=== PATIENT | female | born 1975 | race Caucasian/White ===

== ENCOUNTER 2016-03-20 04:17 | Observation (INO) | payer OTHER ==
[2016-03-20] MEDS ORDERED: NS 1,000 ML IV ONE ×2 (04:27→05:41)
[2016-03-20] MEDS ORDERED: HYDROmorphONE/DILAUDID 1 MG/ML SYR IVP ONE ×3 (04:27→05:41)
[2016-03-20] MEDS ORDERED: ONDANSETRON 4 MG/2 ML VIAL IVP ONE (04:27)
--- NOTE | 2016-03-20 04:27 | EDPHY ---
H & P Stated Complaint: abd pain nausea/vomiting diarrhea since 2 am gallblader removed / HPI/ROS: HPI CHIEF COMPLAINT: Abdominal pain HISTORY OF PRESENT ILLNESS: This patient very pleasant 40-year-old female she just had elective gallbladder removal by Dr. Hardy on Monday or approximately 5 days ago. She has been doing well however she has been taking pain medicine to control her incisional pain and postoperative pain she tells me that she has been constipated for the past 5 days is not had a bowel movement. She tells me that she took multiple doses of Senokot this evening to have a bowel movement she woke up suddenly around 2 o'clock minus excruciating crampy abdominal pain located in her mid abdomen she did have a diarrheal bowel movement and 1 episode of vomiting. She reported nonbilious nonbloody. She does tell me that after Valium she does feel slightly better but has mid abdominal pain. She denies epigastric pain chest pain or shortness of breath denies fever. currently she tells me her pain is 3/10 mid abdomen Past Medical History: Denies significant medical history Past Surgical History: cholecystectomy recently, tubal ligation Social History: Denies use of drugs, she does endorse alcohol daily 2 glasses of wine she did have a glass of wine at 6:00 p.m. this evening. Denies tobacco Family History:noncontributory ROS REVIEW OF SYSTEMS: A comprehensive 10 point review of systems is otherwise negative aside from elements mentioned in the history of present illness. Exam Constitutional triage nursing summary reviewed, vital signs reviewed, awake/ alert. Eyes normal conjunctivae and sclera, EOMI, PERRLA. HENT normal inspection, atraumatic, moist mucus membranes, no epistaxis, neck supple/ no meningismus, no raccoon eyes. Respiratory clear to auscultation bilaterally, normal breath sounds, no respiratory distress, no wheezing. Cardiovascular rate normal, regular rhythm, no murmur, no edema, distal pulses normal. Gastrointestinal soft, mild tenderness palpation periumbilical region and slightly superior to the umbilicus, no epigastric pain, no rebound, no guarding , normal bowel sounds, no distension, no pulsatile mass. Genitourinary no CVA tenderness. Musculoskeletal no midline vertebral tenderness, full range of motion, no calf swelling, no tenderness of extremities, no meningismus, good pulses, neurovascularly intact. Skin pink, warm, & dry, no rash, skin atraumatic. Neurologic awake, alert and oriented x 3, AAOx3, moves all 4 extremities equally, motor intact, sensory intact, CN II-XII intact, normal cerebellar, normal vision, normal speech. Psychiatric normal mood/affect. Heme/Lymph/Immune no lymphadenopathy. Differential diagnosis includes but is not limited to and in no particular order : Constipation, internal hernia, Bowel obstruction, appendicitis, gallbladder disease, diverticulitis, colitis, enteritis, perforated viscus, gastritis, GERD , esophagitis, urinary tract infection, pyelonephritis, kidney stones Medical Decision Making: This patient had an IV established obtain blood work, she will be medicated with Zofran for nausea IV fluid she has declined pain medicine this time. She had a CT scan of her abdomen pelvis given her recent cholecystectomy and abdominal pain however most likely abdominal pain is due to constipation and having a bowel movement this evening. She has been constipated for 5 days took multiple laxatives doses today and had a sudden onset crampy abdominal pain and then a bowel movement. Re-evaluation: CT scan of the abdomen pelvis with IV contrast. The results of the study are shows minimal fluid in the gallbladder fossa, however otherwise no acute inflammatory process seen in the abdomen The study was read by Dr. Corey I viewed the images myself on the PACS system. 0554: Re-examination patient is still having ongoing abdominal pain it is tender in the mid abdomen she is nauseous. She has had multiple rounds of Dilaudid with poor control of her pain. Due to ongoing pain and nausea vomiting I will admitted to the medical surgical unit I did speak with Dr. Mckoy at this time he agrees to admit this patient. 0557: re-examination this time I did reexamine her abdomen she is focally tender epigastric region there is no guarding or peritoneal signs. She is feeling more comfortable now after IV Dilaudid. I have also ordered an EKG time of EKG 6:01 a.m., this is sinus rhythm rate of 55, there is no acute ischemic changes appreciated specifically no ST elevation, ST depression, T- wave abnormalities. This is a normal-appearing EKG. Source: Patient - Personal History LMP (Females 10-55): 1-7 Days Ago Current Tetanus/Diphtheria Vaccine: Yes Current Tetanus Diphtheria and Acellular Pertussis (TDAP): Yes - Medical/Surgical History Hx Asthma: No Hx Chronic Respiratory Disease: No Hx Diabetes: No Hx Cardiac Disease: No Hx Renal Disease: No Hx Cirrhosis: No Hx Alcoholism: No Hx HIV/AIDS: No Hx Splenectomy or Spleen Trauma: No Other PMH: hypothyroid - Social History Smoking Status: Never smoked Constitutional: Initial Vital Signs Temperature (C) 37 C 03/20/16 04:20 Heart Rate 67 03/20/16 04:20 Respiratory Rate 16 03/20/16 04:20 Blood Pressure 115/85 H 03/20/16 04:20 O2 Sat (%) 99 03/20/16 04:20 O2 Delivery Mode Room Air O2 (L/minute) 2 Allergies/Adverse Reactions: No Known Allergies Allergy (Unverified 03/20/16 04:19) Home Medications: Medication Instructions Recorded Cyanocobalamin [Vitamin B12 (*)] 3,000 mcg PO DAILY 03/20/16 Hyoscyamine Sulfate [Levsin, 0.125 mg SL TID PRN 03/20/16 Hyomax-Sl 0.125 mg (*)] Levothyroxine [Synthroid 50 mcg 50 mcg PO DAILY06 03/20/16 (*)] Omeprazole 40 mg PO DAILY@18 03/20/16 Medical Decision Making - Data Points Laboratory Results: Laboratory Results 03/20/16 04:40 03/20/16 04:40 Medications Given: Discontinued Medications Hydromorphone HCl (Dilaudid) 0.5 mg IVP EDNOW ONE Stop: 03/20/16 04:28 Last Admin: 03/20/16 04:57 Dose: 0.5 mg Hydromorphone HCl (Dilaudid) 0.5 mg IVP EDNOW ONE Stop: 03/20/16 05:28 Last Admin: 03/20/16 05:27 Dose: 0.5 mg Hydromorphone HCl (Dilaudid) 1 mg IVP EDNOW ONE Stop: 03/20/16 05:42 Last Admin: 03/20/16 05:55 Dose: 1 mg Sodium Chloride (Ns) 1,000 mls @ 0 mls/hr IV ONCE ONE PRN Reason: Wide Open Stop: 03/20/16 04:28 Last Admin: 03/20/16 04:56 Dose: 1,000 mls Sodium Chloride (Ns) 1,000 mls @ 0 mls/hr IV ONCE ONE PRN Reason: Wide Open Stop: 03/20/16 05:42 Last Admin: 03/20/16 06:23 Dose: 1,000 mls Ondansetron HCl (Zofran) 4 mg IVP EDNOW ONE Stop: 03/20/16 04:28 Last Admin: 03/20/16 04:57 Dose: 4 mg Promethazine HCl (Phenergan Injection) 12.5 mg IVP ONCE ONE Stop: 03/20/16 05:57 Last Admin: 03/20/16 14:49 Dose: Not Given Departure - Departure Disposition: [facility] Acute Clinical Impression: Abdominal pain Qualifiers: Abdominal location: generalized Qualifier Code: (R10.84) Generalized abdominal pain Condition: Fair
[2016-03-20 04:49] LABS: % IMMATURE GRANULYOCYTES 0.5 % (0.0-1.1); ABSOLUTE IMMATURE GRANULOCYTES 0.06 10^3/uL (0.00-0.10); ADD DIFF? NO; ADD MORPH? NO; ADD SCAN? NO; ATYPICAL LYMPHOCYTE FLAG 0 (0-99); FRAGMENT RBC FLAG 0 (0-99); HEMATOCRIT 41.5 % (38.0-47.0); HEMOGLOBIN 14.7 g/dL (12.6-16.3); LEFT SHIFT FLG 0 (0-99); LIPEMIA HEMOLYSIS FLAG 90 (0-99); MEAN CELL HEMOGLOBIN 34.2 pg (27.9-34.1); MEAN CELL HEMOGLOBIN CONCENTR. 35.4 g/dL (32.4-36.7); MEAN CELL VOLUME 96.5 fL (81.5-99.8); MEAN PLATELET VOLUME 9.7 fL (8.7-11.7); PLATELET CLUMPS FLAG 20 (0-99); PLATELET COUNT 246 10^3/uL (150-400); RED CELL DISTRIBUTION WIDTH 11.8 % (11.5-15.2)
[2016-03-20] MEDS ORDERED: IOPAMIDOL (ISOVUE-300) 100 ML BTL IV ONE (05:00)
[2016-03-20 05:04] LABS: ALANINE AMINOTRANSFERASE 55 IU/L (9-52); ALBUMIN 4.4 g/dL (3.5-5.0); ALKALINE PHOSPHATASE 55 IU/L (38-126); ANION GAP 10 mEq/L (8-16); ASPARTATE AMINOTRANSFERASE 33 IU/L (14-46); BILIRUBIN,TOTAL 0.9 mg/dL (0.1-1.4); BILIRUBIN-CONJUGATED 0.6 mg/dL (0.0-0.5); BILIRUBIN-UNCONJUGATED 0.3 mg/dL (0.0-1.1); CALCIUM 9.5 mg/dL (8.5-10.4); CARBON DIOXIDE 27 mEq/l (22-31); CHLORIDE 102 mEq/L (97-110); GLOMERULAR FILTRATION RATE > 60; GLUCOSE 108 mg/dL (70-100); POTASSIUM 4.3 mEq/L (3.5-5.2); SODIUM 139 mEq/L (134-144); TOTAL PROTEIN 7.4 g/dL (6.3-8.2)
[2016-03-20 05:08] LABS: COLOR YELLOW; LEUKOCYTE ESTERASE,URINE NEGATIVE (NEGATIVE); NITRITE,URINE NEGATIVE (NEGATIVE)
[2016-03-20] MEDS ORDERED: HYDROmorphONE/DILAUDID 1 MG/ML SYR ONE (05:12)
[2016-03-20] MEDS ORDERED: PROMETHAZINE HCL 25 MG/ML INJ IVP ONE (05:56)
--- NOTE | 2016-03-20 06:03 | CPEKG ---
Heart Rate: 55 RR Interval: 1091 P-R Interval: 136 QRSD Interval: 92 QT Interval: 476 QTC Interval: 456 P Weems: 15 QRS Weems: 50 T Wave Weems: 28 EKG Severity - NORMAL ECG - EKG Impression: SINUS RHYTHM Electronically Signed By: Luiz Georges 22-Mar-2016 05:16:56
[2016-03-20] MEDS: ONDANSETRON 4 MG/2 ML VIAL IVP PRN ×2 (07:14→18:49)
[2016-03-20] MEDS: HYDROmorphONE/DILAUDID 1 MG/ML SYR IVP PRN ×6 (07:29→18:28)
--- NOTE | 2016-03-20 08:46 | GDS ---
[f rep st] TRANSFER SUMMARY CHIEF COMPLAINT: Abdominal pain. HISTORY OF PRESENT ILLNESS: A 40-year-old female, status post laparoscopic cholecystectomy several d ays ago here at [facility], complains of epigastric pain. Seen in the emergency department, requiring Dilau did. White blood count 12.77, hematocrit was 41. Chemistries were essentially normal with a low manuel irubin, normal lipase. Urinalysis was negative. A CT scan was done showing no specific abnormal findings, miniscule fluid in the gallbladder fossa as would be expected. At the time of my exam this morning, the patient's abdomen is soft, benign, and essentially pain free . She also had quite a bit of vomiting, requiring Zofran both in the ER and on admission. ALLERGIES: None. CURRENT MEDICATIONS: Synthroid, Prilosec. PAST SURGICAL HISTORY: Cholecystectomy, tubal ligation. REVIEW OF SYSTEMS: Denies asthma, heart trouble, diabetes, epilepsy, or rheumatic fever. PHYSICAL EXAM: HEENT: No scleral icterus. Pharynx clear. NECK: Supple without adenopathy. LUNGS : Clear. HEART: Normal S1, S2 without murmur. ABDOMEN: Soft, benign. No masses. EXTREMITIES: Neurologic exam is intact. LABORATORY DATA: CT scan and labs reviewed. ASSESSMENT: Abdominal pain, but it seems to be resolving. Right now the abdomen is very benign. PLAN: Clear liquids, advance as tolerated. If she does not need any more Dilaudid, we will send her home later today. /[id number]/MODL
--- NOTE | 2016-03-20 14:57 | NM ---
Nuclear medicine HIDA scan. March 20, 2016. HISTORY: Evaluate for possible bile leak. Cholecystectomy. TECHNIQUE: Gamma camera images of the right upper quadrant are obtained after intravenous administrat ion of 6.0 mCi technetium Choletec. FINDINGS: There is rapid uptake of radiopharmaceutical by the liver. Excretion into the small bowel i s identified along with opacification of the common bile duct. The vast majority of excreted material extends into the small bowel. However, there is a very small amount of scintigraphic activity just b elow the inferior tip of the right hepatic lobe, suggesting there may be a small amount of bile leaka ge into the subhepatic region. IMPRESSION: 1. The vast majority of excreted scintigraphic material passes into the small bowel, with minimal sub hepatic accumulation of radiopharmaceutical suggesting minimal biliary extravasation.
--- NOTE | 2016-03-20 16:37 | CT ---
CT Scan of the Abdomen and Pelvis (With Contrast) March 20, 2016at 0522 Hours History: Right upper quadrant abdominal pain. Technique: Axial computed tomographic images of the abdomen and pelvis were obtained with the unevent ful intravenous administration of 90 mL Isovue-300 contrast. No oral or rectal contrast which limits the study. Dose reduction techniques were utilized. CT Abdomen Findings Lung bases: Normal. Liver: Normal. Biliary system: Gallbladder is surgically absent. Minimal fluid in the gallbladder fossa, probably po stsurgical. No biliary ductal dilation. Spleen: Normal. Pancreas: Normal. Adrenals: Normal. Kidneys: No obstruction or solid masses. Abdominal aorta: No aneurysm. No bowel obstruction, ascites, or significant retroperitoneal lymphadenopathy. CT Pelvis Findings: Minimal free fluid in the pelvis, probably physiologic. No adnexal masses. No sig nificant adenopathy. No pneumoperitoneum. No evidence of inflammatory thickening of the appendix. Impressions: 1. Prior cholecystectomy with minimal free fluid in the gallbladder fossa region, which is likely pos tsurgical benign. 2. No CT evidence of appendicitis, abscess, or bowel obstruction. Findings and recommendations discussed with emergency department physician, Dr. Nick Hernandez at 0535 hours today. Final report concurs with initial preliminary interpretation.
[2016-03-20] MEDS ORDERED: ACETAMINOPHEN 325 MG TAB PO PRN (17:53)
[2016-03-21] MEDS: ONDANSETRON 4 MG/2 ML VIAL IVP PRN ×3 (01:06→19:54)
[2016-03-21] MEDS ORDERED: LR 1,000 ML IV SCH (09:30)
[2016-03-21] MEDS ORDERED: GLUCAGON,HUMAN RECOMBINANT 1 MG VIAL ONE (10:35)
[2016-03-21] MEDS ORDERED: IOTHALAMATE MEG (CONRAY) 50 ML VIAL IV ONE (10:35)
[2016-03-21] MEDS ORDERED: MIDAZOLAM 2 MG/2 ML VIAL ONE (11:01)
[2016-03-21] MEDS ORDERED: fentaNYL 100 MCG/2 ML INJ ONE ×2 (11:02→11:46)
[2016-03-21] MEDS ORDERED: DEXAMETHASONE 4 MG/ML VIAL ONE (11:02)
[2016-03-21] MEDS ORDERED: ROCURONIUM 50 MG/5 ML VIAL ONE (11:02)
[2016-03-21] MEDS ORDERED: ONDANSETRON 4 MG/2 ML VIAL ONE (11:02)
[2016-03-21] MEDS ORDERED: LIDOCAINE 2% 100 MG/5 ML SYR IVP ONE (11:02)
[2016-03-21] MEDS ORDERED: SUGAMMADEX SODIUM 200 MG/2 ML VIAL IVP ONE (11:02)
[2016-03-21] MEDS ORDERED: PROPOFOL 200 MG/20 ML VIAL ONE (11:02)
[2016-03-21] MEDS ORDERED: levOFLOXACIN 500 MG/DEXTROSE/100 ML BAG IV ONE (11:20)
[2016-03-21] MEDS ORDERED: INDOMETHACIN 50 MG SUPP PR ONE (11:21)
[2016-03-21] MEDS ORDERED: PROMETHAZINE HCL 25 MG/ML INJ ONE (11:48)
--- NOTE | 2016-03-21 12:25 | GPN ---
[f rep st] PROCEDURE NOTE DATE OF PROCEDURE: 03/21/2016 PROCEDURE: Endoscopic retrograde cholangiopancreatography with biliary sphincterotomy, extraction of debris, placement of a stent. INDICATION: Ms. [facility] is a 40-year-old female, who had a recent cholecystectomy and now has evidence of a bile leak. She presents for further evaluation. CONSENT: Risks, benefits, and alternatives of the procedure were discussed in great detail with the patient. Risk of infection, bleeding, perforation, sedation, and pancreatitis were discussed. All questions were answered. Informed consent was obtained. MEDICATIONS: General anesthesia. Please see Anesthesia record for details. Indomethacin 100 mg per rectum. Levaquin 500 mg IV x1. ESTIMATED BLOOD LOSS: Insignificant. ERCP EXAM: The Olympus duodenoscope was introduced into the mouth and advanced to the second portion of the duodenum. The ampulla was brought into view and was normal in appearance. Using a [employer] 0.035 inch wire,a wire was advanced into the common bile duct on the initial attempt. No pancreatic duct manipulation or injection was made. A limited cholangiogram was performed to confirm position. A 1 cm biliary sphincterotomy was then performed and a balloon sweep was then made with a [place] 9-12 mm balloon with removal of debris. A occlusion cholangiogram was performed and no obvious leak noted. A 10-[employer] 7 cm stent was placed into the bile duct due to the abnormal HIDA findings. Excess air was suctioned. The procedure was terminated. IMPRESSION: 1. Endoscopic retrograde cholangiopancreatography with biliary sphincterotomy, removal of debris, and placement of a plastic stent. RECOMMENDATION: 1. N.p.o. till tomorrow. 2. Antibiotics x5 days. 3. Repeat ERCP in 6-8 weeks. /[id number]/MODL MTDD
--- NOTE | 2016-03-21 13:05 | GCON ---
[f rep st] CONSULTATION DATE OF CONSULTATION: 03/21/2016 CONSULTING PHYSICIAN: Adolfo Cordova MD REASON FOR CONSULTATION: Bile leak. HISTORY OF PRESENT ILLNESS: Allegra is a 40-year-old female with an elective cholecystectomy approximately 5 days ago, who presents to [facility] with complaints of abdominal pain, nausea and vomiting. The patient started experiencing an excruciating crampy pain mainly in the upper quadrants of the day prior to admission. She also had 1 episode of diarrheal bowel movements. She does complain of nausea and vomiting, but these symptoms are worsened with any type of oral intake with some relief with Valium. She had a CT scan as well as a HIDA scan which reveals the possibility of a bile leak. I am being asked by Dr. Morgan to evaluate Allegra in consultation regarding her abdominal pain. PAST MEDICAL HISTORY: Hypothyroidism, GERD PAST SURGICAL HISTORY: Cholecystectomy, recent tubal ligation. ALLERGIES: NKDA MEDICATIONS: Synthroid, Prilosec. SOCIAL HISTORY: Positive alcohol. No cigarette use. FAMILY HISTORY: No history of pancreatic or gallbladder cancer. REVIEW OF SYSTEMS: A 12-point comprehensive review of systems was asked. Pertinent positives and negatives as per HPI. PHYSICAL EXAMINATION: VITAL SIGNS: Blood pressure 107/74, pulse 85, respirations 16, temperature 37. GENERAL: Awake, alert, oriented x3. In no distress. HEENT: Anicteric sclerae. Mucous membranes moist. NECK: No JVD. CARDIOVASCULAR: Regular rate and rhythm. Positive S1, S2. No murmurs or gallops appreciated. LUNGS: Clear to auscultation bilaterally. No wheezes, rales or rhonchi. ABDOMEN: Soft, tender in midepigastrium. No guarding. No rebound. Positive bowel sounds. EXTREMITIES: No clubbing, cyanosis, edema. NEUROLOGIC: Cranial nerves II through XII grossly intact. PSYCH: Normal affect. MUSCULOSKELETAL: No joint effusions. LABORATORY DATA: Blood work: WBC 12.77, hemoglobin 14.0, hematocrit 41.5. Total bilirubin 0.9, AST 33, ALT 55, alkaline phosphatase 55, albumin 4.4, lipase 23. HIDA scan: Minimal extravasation. ASSESSMENT AND PLAN: 1. Abdominal pain- midepigastrium, after cholecystectomy. Did have a HIDA scan which did reveal a bile leak. At this time I recommend to proceed with ERCP for further evaluation as well as possible stent placement. The risks, benefits , and alternatives of the procedure were discussed with the patient. The risks of infection, bleeding, perforation, sedation, and pancreatitis were discussed. All questions were answered. Informed consent was obtained. /[id number]/MODL MTDD
--- NOTE | 2016-03-21 13:14 | DX ---
Intraoperative fluoroscopy History: ERCP. Comparison: CT abdomen pelvis March 20, 2016. Findings: 3 intraoperative spot films are provided, showing balloon sweeping of the common bile duct. No filling defects are identified. Fluoro time: 89.3 seconds. Dose: 20.7 mGy. Impression: Intraoperative fluoroscopy as above.
[2016-03-21 13:29] VITALS: RESP 16
--- NOTE | 2016-03-21 14:31 | SOAPPROG ---
SOAP Progress Note Assessment/Plan: Assessment/Plan: HIDA scan with possible cystic duct stump leak Normal lab results ERCP no demonstrable leak Stent placed Patient feels well RRR CTA 3 trocar sites c/d/i Doing well Clears liq Advance diet to reg tomorrow if labs normal Objective: Vital Signs Temp Pulse Resp BP Pulse Ox 37.1 C 55 L 16 123/77 H 92 03/21/16 13:27 03/21/16 13:27 03/21/16 13:27 03/21/16 13:27 03/21/16 13:27 03/20/16 03/21/16 03/22/16 05:59 05:59 05:59 Intake Total 3901 950 Output Total 850 0 Balance 3051 950 ICD10 Worksheet Patient Problems: Problems Problem Status Diagnosed Abdominal pain Acute
[2016-03-21] MEDS ORDERED: DIAZEPAM 10 MG/2 ML SYR IVP PRN (23:15)
[2016-03-21] MEDS ORDERED: HYDROCODONE/APAP 5/325 TAB PO PRN (23:15)
[2016-03-21] MEDS: KETOROLAC 30 MG/1 ML SDV IVP PRN (23:27)
--- NOTE | 2016-03-22 08:19 | SOAPPROG ---
SOAP Progress Note Assessment/Plan: Assessment: Plan: Subjective: vss, af, feeling better with stent. will dc home if tolerating diet. Objective: Vital Signs Temp Pulse Resp BP Pulse Ox 37 C 66 16 110/61 92 03/22/16 04:00 03/22/16 04:00 03/22/16 04:00 03/22/16 04:00 03/22/16 04:00 03/21/16 03/22/16 03/23/16 05:59 05:59 05:59 Intake Total 3901 4150 Output Total 850 300 Balance 3051 3850 ICD10 Worksheet Patient Problems: Problems Problem Status Diagnosed Abdominal pain Acute
[2016-03-22 08:33] VITALS: BP 119/76; PULSE 54; TEMP 98.5; O2SAT 94
[2016-03-22] MEDS: KETOROLAC 30 MG/1 ML SDV IVP PRN (10:46)
--- NOTE | 2016-03-22 11:13 | SOAPPROG ---
[facility] Progress Note Assessment/Plan: Assessment: Post ERCP with stent for small bile leak. Doing well Plan: OK to advance diet as tolerate Levaquin PO for 5 days Remove stent in 6-8 weeks Will sign off 03/22/16 11:10 Subjective: CC abd pain Pain much better today, had BM today no melena or BRB Objective: Vital Signs Temp Pulse Resp BP Pulse Ox 36.9 C 54 L 16 119/76 94 03/22/16 08:00 03/22/16 08:00 03/22/16 08:00 03/22/16 08:00 03/22/16 08:00 03/21/16 03/22/16 03/23/16 05:59 05:59 05:59 Intake Total 3901 4150 Output Total 850 300 Balance 3051 3850 Physical Exam - Physical Exam General Appearance: alert, no apparent distress Respiratory: lungs clear, normal breath sounds Cardiac/Chest: regular rate, rhythm, No diastolic murmur Abdomen: non-tender, soft ICD10 Worksheet Patient Problems: Problems Problem Status Diagnosed Abdominal pain Acute
--- NOTE | 2016-03-22 12:09 | GDS ---
[f rep st] DISCHARGE SUMMARY PRESENT ILLNESS: This patient was admitted several days after an emergent cholecystectomy with incre asing epigastric pain. HIDA scan was done, and she was found to have a small bile leak. She underwe nt an ERCP by Dr. Hussein, feels better, and will be discharged home if she tolerates diet this morning. FINAL DIAGNOSIS: Bile leak post cholecystectomy. DISPOSITION: Home. FOLLOWUP: Dr. Mckoy in a week. Follow up in [address] Hussein for stent removal. /[id number]/MODL
== END 2016-03-22 13:16 | disposition home or self-care (01) ==
LOC: INTOOBSV 05:51 → F3E 06:43
PROVIDERS: ADMIT Surgery; ATTEND Surgery
PROC: 0F798DZ Dilation of Common Bile Duct with Intraluminal Device, Via Natural or Artificial Opening Endoscopic (ICD-10-PCS; principal; 2016-03-20)
PROC: 0FC98ZZ Extirpation of Matter from Common Bile Duct, Via Natural or Artificial Opening Endoscopic (ICD-10-PCS; principal; 2016-03-20)
DX: K91.89 Other postprocedural complications and disorders of digestive system (principal); E03.9 Hypothyroidism, unspecified; K21.9 Gastro-esophageal reflux disease without esophagitis
CPT/HCPCS: 43264; 43274; 74177; 76001; 78226; 93005; 96361; 96374; 96375; 99285; A9537; G0378; C2625; J1100; J1170; J1610; J1885; J1956; J2001; J2250; J2405; J2550; J2704; J3010; Q9961; Q9967

== ENCOUNTER 2016-05-16 10:16 | Day surgery (SDC) | payer OTHER ==
[2016-05-16] MEDS ORDERED: GLUCAGON,HUMAN RECOMBINANT 1 MG VIAL ONE (11:04)
[2016-05-16] MEDS ORDERED: IOTHALAMATE MEG (CONRAY) 50 ML VIAL IV ONE (11:04)
[2016-05-16] MEDS ORDERED: LR 1,000 ML IV ONE (11:19)
[2016-05-16] MEDS ORDERED: PROPOFOL/EMULSION 500 MG/50 ML BOTTLE IV ONE (11:30)
[2016-05-16] MEDS ORDERED: MIDAZOLAM 2 MG/2 ML VIAL ONE ×2 (11:30→12:41)
[2016-05-16] MEDS ORDERED: levOFLOXACIN 500 MG/DEXTROSE/100 ML BAG IV ONE (11:38)
[2016-05-16] MEDS ORDERED: INDOMETHACIN 50 MG SUPP PR ONE (11:49)
[2016-05-16] MEDS ORDERED: ONDANSETRON 4 MG/2 ML VIAL ONE ×2 (11:56→13:56)
[2016-05-16] MEDS ORDERED: SUGAMMADEX SODIUM 200 MG/2 ML VIAL IVP ONE (11:56)
[2016-05-16] MEDS ORDERED: METOCLOPRAMIDE 10 MG/2 ML VIAL ONE (11:56)
[2016-05-16] MEDS ORDERED: LIDOCAINE 2% 5 ML SDV ONE (11:56)
--- NOTE | 2016-05-16 13:05 | GPN ---
[f rep st] PROCEDURE NOTE DATE OF PROCEDURE: 05/16/2016 PROCEDURE: Endoscopic retrograde cholangiopancreatography with stent removal, extraction of debris. INDICATION: The patient is a 40-year-old female who presents for evaluation of a bile leak. She thompson d a prior cholecystectomy with bile leak in February of this year with stent placement. She presents for further evaluation. CONSENT: Risks, benefits, and alternatives of the procedure were discussed in great detail with the patient. Risks of infection, bleeding, perforation, sedation, and pancreatitis were discussed. Al l questions answered, reports obtained. MEDICATIONS: General anesthesia. Please see Anesthesia details. Levaquin 5 mg IV x1. Indomethaci n 100 mg per rectum x1. ESTIMATED BLOOD LOSS: None. ERCP EXAMINATION: The Olympus duodenoscope was introduced through the mouth and second portion of t he duodenum, emanating from the ampulla with a 10-[place] stent, which was snared and removed through the scope. Using the [employer] sphincterotome and a 0.035 inch wire, the wire was advanced to the common bile duct and intrahepatics using the wire guided technique. No pancreatic duct, man ipulation or injection was made. A balloon sweep with a 19 mm balloon with extraction of debris. was performed and no caleb dence of bile leak was seen. IMPRESSION: 1. Removal of stent. 2. Clearance of the duct with removal of debris. RECOMMENDATIONS: 1. Continue previous medications. 2. Clear liquid diet until tomorrow. 3. Continue previous medications. /[id number]/MODL
[2016-05-16] MEDS ORDERED: ONDANSETRON DISINTEGRATING 4 MG TAB PO ONE (14:30)
== END 2016-05-16 15:25 | disposition home or self-care (01) ==
LOC: FSGY 10:16
PROVIDERS: ATTEND Internal Medicine Gastroenterology
PROC: 0F798DZ Dilation of Common Bile Duct with Intraluminal Device, Via Natural or Artificial Opening Endoscopic (ICD-10-PCS; principal; 2016-05-16 11:45)
PROC: 0FPB80Z Removal of Drainage Device from Hepatobiliary Duct, Via Natural or Artificial Opening Endoscopic (ICD-10-PCS; principal; 2016-05-16 11:45)
DX: K83.8 Other specified diseases of biliary tract (principal); E03.9 Hypothyroidism, unspecified
CPT/HCPCS: J1610; J1956; J2250; J2405; J2704; J2765; Q9961